=== PATIENT | male | born 1955 | race Caucasian/White ===

== ENCOUNTER 2022-08-24 14:28 | Emergency (ER) | payer MEDICAID ==
[~2022-08-24] VITALS: Ht 175.3 cm; Wt 95.3 kg
[2022-08-24 14:28] VITALS: BP_SYST 131
--- NOTE | 2022-08-24 14:28 | NUR ---
BROUGHT IN BY [facility] AND PLACED IN BED #7, TRIAGED. REPORT GIVEN TO [facility]
--- NOTE | 2022-08-24 14:49 | NUR ---
Patient found in bed 7 for c/o generalized weakness since yesterday. Patient said he was resting in the sun outside. [place] and he started to feel weak. Patient stopped by and sat down. Patient had someone call 911 today and ambulance picked him up. Will continue to monitor.
[2022-08-24 16:07] LABS: HEMATOCRIT 32.7 % (36-54); HEMOGLOBIN 11.4 g/dL (14.0-18.0); MEAN CORPUSCULAR HEMOGLOBIN 37 pg (27-31); MEAN CORPUSCULAR HGB CONC 35 % (32-36); MEAN CORPUSCULAR VOLUME 107 fL (79.0-98.0); PLATELET COUNT (AUTO) 97 K/uL (130-430); RED BLOOD CELL COUNT(AUTO) 3.06 MIL/uL (4.2-6.2); RED CELL DISTRIBUTION WIDTH 14.5 % (9.0-15.0); WHITE BLOOD COUNT (AUTO) 4.8 K/uL (4.8-10.8)
[2022-08-24 16:29] LABS: ANION GAP 9 (5-15); CALCIUM 7.5 mg/dL (8.4-11.0); CHLORIDE 101 mmol/L (98-107); CREATININE 1.12 mg/dL (0.55-1.30); GLUCOSE 113 mg/dL (70-99); POTASSIUM 3.6 mmol/L (3.5-5.1); UREA NITROGEN, BLOOD 15 mg/dL (8-21)
[2022-08-24 16:36] LABS: ALANINE AMINOTRANSFERASE 146 U/L (12-78); ALBUMIN 2.9 g/dL (3.4-4.8); ASPARTATE AMINOTRANSFERASE 123 U/L (10-37); TOTAL BILIRUBIN 0.9 mg/dL (0.0-1.0)
[2022-08-24 16:38] LABS: GFR AFRICAN AMERICAN 84 mL/min (>90)
[2022-08-24 16:56] LABS: BAND % (MANUAL) 2 % (0-6); EOSINOPHILS % (MANUAL) 3 % (0-7); LYMPHOCYTES % (MANUAL) 40 % (20-46); MONOCYTES % (MANUAL) 12 % (0-11)
[2022-08-24 17:06] LABS: BILIRUBIN,URINE NEGATIVE (NEGATIVE); BLOOD, URINE NEGATIVE (NEGATIVE); CLARITY/URINE CLEAR (CLEAR); COLOR,URINE YELLOW (YELLOW); GLUCOSE,URINE NEGATIVE (NEGATIVE); KETONES,URINE TRACE (NEGATIVE); LEUKOCYTE ESTERASE ,URINE NEGATIVE (NEGATIVE); NITRITE, URINE NEGATIVE (NEGATIVE); PROTEIN URINE NEGATIVE (NEGATIVE); UROBILINOGEN,URINE 0.2 (0.2-1.0)
[2022-08-24 17:22] LABS: ACETONE, SERUM NEGATIVE (NEGATIVE)
--- NOTE | 2022-08-24 17:54 | NUR ---
Patient resting in bed. No distress noted. Asked Dr. Lares if patient can eat. Food given to patient.
[2022-08-24 18:05] VITALS: BP_SYST 136
--- NOTE | 2022-08-24 18:05 | NUR ---
Patient given written and verbal discharge instructions and verbalizes understanding. ER MD discussed with patient the results and treatment provided. Patient in stable condition. ID arm band removed. Patient educated on pain management and to follow up with PMD. Pain Scale [0]. Opportunity for questions provided and answered. Medication side effect fact sheet provided.
== END 2022-08-24 18:05 | disposition home or self-care (01) ==
LOC: SED 14:28
DX: R55 Syncope and collapse (principal); R42 Dizziness and giddiness; R53.83 Other fatigue; Z79.899 Other long term (current) drug therapy
CPT/HCPCS: 36415; 70450-TC; 71045; 76376; 80053; 81003; 82009; 82550; 83605; 84484; 85007; 85027; 93005; 99285